=== PATIENT | male | born 1995 | race African-American/Black ===

== ENCOUNTER 2016-10-13 19:19 | Observation (INO) ==
[2016-10-13] MEDS ORDERED: MORPHINE IV ONE (19:53)
[2016-10-13] MEDS ORDERED: ZOFRAN IV ONE (19:53)
[2016-10-13] MEDS ORDERED: TORADOL IV ONE (19:54)
[2016-10-13] MEDS ORDERED: NS 1,000 ML IV ONE (19:56)
--- NOTE | 2016-10-13 19:58 | PROVIDER DOCUMENTATION ---
HPI-Abdominal Pain/GI Problem <Osmar Vann - Last Filed: 10/13/16 21:29> - General Source: patient - History of Present Illness-ABD Nature of Presenting Problems: Pt is a 21 yom who presents to ER with CC of RLQ pain x6 days. Pt reports that he was seen at [facility] x3 days ago and was given amoxycilan and mobic and diagnosed with URI. PT reports that he has had no relief since his visit to [facility], and reports Vx3 last night and it made his pain worse (9/10 pain, previously 8/10) but has been constant since it started 6 days ago. Pt reports that abdominal pain is worse on movement/walking/palpations. Abdominal Pain Onset Location: reports: RLQ Pain Radiation: reports: no radiation Quality of Pain: reports: aching, cramping, sharp Severity in ED: reports: severe Onset/Duration: reports: 6 days ago Timing: reports: still present, constant Associated Symptoms: reports: loss of appetite, nausea, vomiting. denies: constipation, cough, diarrhea, EENT symptoms, fever/chills, genitourinary problems, heartburn, swelling/mass in abdomen, weakness, trouble walking Last BM: unsure Dark Stools Present?: reports: none noticed Rectal Bleeding: reports: none Rectal Pain: reports: none Emesis Description: reports: none <Rigoberto Smith - Last Filed: 10/13/16 21:40> - General Chief Complaint: Abdominal Pain Stated Complaint: RLQ PAIN Time Seen by Provider: 10/13/16 19:29 Allergies/Adverse Reactions: Patient Allergies Allergy/AdvReac Type Severity Reaction Status Date / Time No Known Allergies Allergy Verified 10/13/16 19:32 Home Medications: Home Medication List Medication Instructions Recorded Confirmed Last Taken Type No Home Medications 10/13/16 10/13/16 Unknown History Review of Systems - Adult - REVIEW OF SYSTEMS - ADULT Constitutional: denies: chills, fever, fatique, night sweats Eyes: reports: no symptoms reported Ears, Nose, Mouth & Throat: reports: no symptoms reported Cardiovascular: reports: no symptoms reported Respiratory: denies: cough, dyspnea on exertion, excessive sputum production, hemoptysis, shortness of breath, wheezing Gastrointestinal: reports: abdominal pain, nausea, poor appetite, vomiting. denies: hematemesis, constipation, diarrhea, difficulty swallowing, frequent heartburn, rectal bleeding Genitourinary: denies: dysuria, frequency, flank pain, frequent UTI's, incontinence, urinary retention, urgency Musculoskeletal: denies: back pain, frequent leg cramps, muscle aches, muscle weakness, neck pain Integumentary: reports: no symptoms reported Neurological: reports: no symptoms reported Psychiatric: reports: no symptoms reported Endocrine: reports: no symptoms reported Hematologic/Lymphatic: reports: no symptoms reported Allergic/Immunologic: reports: no symptoms reported All Other Systems: Reviewed and Negative <Rigoberto Smith - Last Filed: 10/13/16 21:40> Past History - Adult - PAST MEDICAL HISTORY-ADULT Review of Records: reports: Nursing Assessment Review, Medications Reviewed Respiratory: reports: asthma - IMMUNIZATION STATUS Childhood Immunizations: See Nurse Assessment Flu Vaccine: See Nurse Assessment <Rigoberto Smith - Last Filed: 10/13/16 21:40> Physical Exam-General - PHYSICAL EXAM-ADULT Initial Vital Signs Reviewed: Yes - CONSTITUTIONAL General Appearance: appears well, alert, mild distress - NECK Neck: non-tender, full range of motion, supple. negative: C-spine tenderness, limited range of motion, lymphadenopathy - RESPIRATORY Respiratory: chest non-tender, lungs clear, normal breath sounds. negative: respiratory distress, decreased breath sounds, accessory muscle use, wheezing - CARDIOVASCULAR Cardiovascular: normal peripheral pulses, regular rate, rhythm. negative: bradycardia, tachycardia, irregularly irregular - GASTROINTESTINAL (ABDOMEN) Abdominal Exam: normal bowel sounds, soft, tenderness (mild RUQ). negative: non tender, abnormal bowel sounds, distended, mass - LYMPHATIC Lymphatic: no adenopathy. negative: axilla node tender, cervical node tenderness, inguinal node tender - MUSCULOSKELETAL Back Exam: no CVA tenderness, no vertebral tenderness. negative: CVA tenderness , decreased range of motion, ecchymosis, muscle spasm, swelling, vertebral tenderness - NEUROLOGIC Neurologic: grossly normal, no motor/sensory deficits. negative: facial droop, focal weakness, motor weakness, sensory deficit - PSYCHIATRIC Psych/Mental Status: normal mood/affect, normal thought content, normal thought process, oriented x 3 <Rigoberto Smith - Last Filed: 10/13/16 21:40> Progress - PLAN OF CARE/RESULTS Progress/Plan/Lab Results: Vital Signs - 24 hr 10/13/16 19:23 Temperature 98.5 F Pulse Rate 70 Respiratory 18 Rate Blood Pressure 149/80 O2 Sat by Pulse 100 Oximetry Orders Category Date Time Status Admit - [facility] - [facility] Routine AdmDCTranf 10/13/16 21:32 Ordered Activity - Up Ad Junie ORDERED Care 10/13/16 21:32 Active Saline Loc DIRECTED Care 10/13/16 21:32 Active Vital Signs Order ARRIVAL TO ROOM Care 10/13/16 21:32 Active NPO Diet 10/13/16 21:[address] ABD/PELVIS W/ IV CONT ONLY [CT] Stat Exams 10/13/16 19:53 Taken CBC WITH ELECTRONIC DIFF [HEME] Stat Lab 10/13/16 20:20 Completed CMP [COMPREHENSIVE METABOLIC PANEL] [CHEM] Stat Lab 10/13/16 20:20 Completed UA Reflex [URINALYSIS W/POSS RFLX CULT] [URINALYSIS] Lab 10/13/16 20:19 Completed Stat URINE CULTURE [RM] Routine Lab 10/13/16 20:35 Received 0.9% Sodium Chloride Inj [Ns] 1,000 ml Med 10/13/16 21:45 Ordered IV 125 mls/hr 0.9% Sodium Chloride Inj [Ns] 1,000 ml Med 10/13/16 19:56 Discontinued IV 999 mls/hr Ketorolac [Toradol] Med 10/13/16 19:54 Discontinued 30 mg IV NOW ONE Morphine Med 10/13/16 19:53 Discontinued 4 mg IV NOW ONE Morphine Med 10/13/16 21:32 Active 4 mg IV Q2H PRN PRN Ondansetron [Zofran] Med 10/13/16 19:53 Discontinued 4 mg IV NOW ONE Ondansetron [Zofran] Med 10/13/16 21:32 Active 4 mg IV Q4H PRN PRN Laboratory Tests 10/13/16 10/13/16 10/13/16 20:19 20:20 20:20 WBC 7.02 RBC 5.33 Hgb 14.2 Hct 42.1 MCV 79.0 L MCH 26.6 L MCHC 33.7 RDW Std Deviation 13.0 Plt Count 220 MPV 10.2 Immature Gran % (Auto) 0.0 Neut % (Auto) 69.4 Lymph % (Auto) 16.5 L [place] % (Auto) 13.4 H Eos % (Auto) 0.6 Baso % (Auto) 0.1 Immature Gran # (Auto) 0.00 Neut # (Auto) 4.87 Lymph # (Auto) 1.16 L [place] # (Auto) 0.94 H Eos # (Auto) 0.04 Baso # (Auto) 0.01 Sodium 134 L Potassium 3.7 Chloride 95 L Carbon Dioxide 25 Anion Gap 14 BUN 10 Creatinine 1.1 Estimated GFR/1.73 m2 > 60 BUN/Creatinine Ratio 9 Glucose 90 Calculated Osmolality 267 Calcium 8.9 Total Bilirubin 0.99 AST 15 ALT 22 Alkaline Phosphatase 70 Total Protein 7.4 Albumin 3.7 Globulin 3.7 Albumin/Globulin Ratio 1.0 Urine Source CLEAN CATCH Urine Color YELLOW Urine Turbidity CLEAR Urine pH 6.5 Ur Specific [place] 1.018 Urine Protein TRACE A Ur Glucose (Stick) NEGATIVE Ur Ketones (Stick) 10 A Urine Blood NEGATIVE Urine Nitrite POSITIVE A Urine Bilirubin SMALL A Urobilinogen Dipstick 4 A Urine Leukocytes NEGATIVE Urine WBC (Auto) <10 Urine RBC (Auto) <10 U Epithel Cells (Auto) <10 Urine Bacteria (Auto) NEGATIVE - CT/MRI 1 CT Study: Abdomen, Pelvis Impression: See EMR Report (appendicitis) CT Results: See report - CONSULTS/PCP/HOSPITALIST Notification #1 *Consult/PCP/Hospitalist*: Dr. Cardona (Surgeon) Time Discussed: 21:30 Consult Disposition: Admit <Rigoberto Smith - Last Filed: 10/13/16 21:40> Departure - Departure Time of Disposition Order: 21:30 Certified Medical Emergency: Emergent <Osmar Vann - Last Filed: 10/13/16 21:29> - Departure Time of Disposition Order: 21:38 Certified Medical Emergency: Emergent <Rigoberto Smith - Last Filed: 10/13/16 21:40> - Departure DIAGNOSIS: Acute appendicitis Qualifiers: Acute appendicitis type: unspecified acute appendicitis type Qualified Code(s) : K35.80 - Unspecified acute appendicitis Disposition: ADMITTED INPATIENT 09 Condition: Fair Referrals: None,PCP [Primary Care Provider] - Attestation - Scribe Verification/Attestation Scribe:: Rigoberto Smith Acting as Scribe for:: Osmar F. O'Meara Scribe documention review:: This chart was documented by a scribe and accurately reflects the service the provider performed and the decisions made by the provider. <Rigoberto Smith - Last Filed: 10/13/16 21:40> Physician Attestation
[2016-10-13 20:20] LABS: URINE MICRO REVIEW NEEDED? NO; URINE SOURCE CLEAN CATCH
[2016-10-13 20:26] LABS: MANUAL DIFF NEEDED? NO
[2016-10-13 20:27] LABS: BILIRUBIN URINE SMALL (NEGATIVE); BLOOD URINE NEGATIVE (NEGATIVE); COLOR YELLOW; GLUCOSE URINE NEGATIVE (NEGATIVE); LEUKOCYTES URINE NEGATIVE (NEGATIVE); NITRITE URINE POSITIVE (NEGATIVE); PH URINE 6.5; PROTEIN URINE TRACE mg/dL (NEGATIVE); SP GRAVITY URINE 1.018; TURBIDITY URINE CLEAR (CLEAR); UROBILINOGEN URINE 4 mg/dL (NORMAL)
[2016-10-13 20:28] LABS: UR EPITHELIAL CELLS <10 /HPF (<10); URINE BACTERIA NEGATIVE /HPF; URINE CULTURE NEEDED? YES; URINE RBC <10 /HPF (<10); URINE WBC <10 /HPF (<10)
[2016-10-13 20:32] LABS: BASO% 0.1 % (0.0-0.8); EOS# 0.04 X1000 (0.0-0.7); EOS% 0.6 % (0.0-10.0); HEMATOCRIT 42.1 % (42.0-52.0); HEMOGLOBIN 14.2 g/dL (14.0-18.0); LYMPH# 1.16 X1000 (1.2-3.4); LYMPH% 16.5 % (20.5-51.1); MCH 26.6 PG (27-31); MCHC 33.7 g/dL (33-37); MONO# 0.94 X1000 (0.11-0.59); MONO% 13.4 % (1.7-9.3); MPV 10.2 FL (7.4-10.4); NEUT% 69.4 % (42.2-75.2); PLT 220 X1000 (130-400); RBC 5.33 XMIL (4.7-6.1)
[2016-10-13 20:49] LABS: AGAP 14; ALBUMIN 3.7 g/dL (3.5-5.0); ALKALINE PHOSPHATASE 70 U/L (32-122); BUN 10 mg/dL (8-22); CALCIUM 8.9 mg/dL (8.8-10.2); CHLORIDE 95 mmol/L (98-107); COSMO 267; GOT 15 U/L (10-34); GPT 22 U/L (10-44); POTASSIUM 3.7 mmol/L (3.5-5.1); SODIUM 134 mmol/L (136-145); TCO2 25 mmol/L (25-35); TOTAL BILIRUBIN 0.99 mg/dL (0.20-1.00); TOTAL PROTEIN 7.4 g/dL (6.3-8.3)
[2016-10-13] MEDS ORDERED: MORPHINE IV PRN (21:32)
[2016-10-13] MEDS ORDERED: ZOFRAN IV PRN (21:32)
[2016-10-13] MEDS ORDERED: ZOSYN 3.375 GM/NS 50 ML IV ONE (21:38)
--- NOTE | 2016-10-13 21:58 | Diag Imaging Result Document ---
PROCEDURE NAME: CT ABD/PELVIS W/ IV CONT ONLY - 10/13/2016 CT ABDOMEN AND PELVIS WITH INTRAVENOUS CONTRAST: TECHNIQUE: Dose reduction protocol. COMPARISON: 10/10/2016. FINDINGS: Normal liver, spleen, pancreas, gallbladder, and adrenal glands. Normal enhancement of the kidneys. No hydronephrosis. Normal aorta. There is stool throughout the colon. The appendix is thickened and there are mild adjacent inflammatory changes. Medial to the appendix is an irregular area containing air believed to be a small abscess measuring approximately 3 cm. The urinary bladder is only mildly distended. The prostate is not enlarged. IMPRESSION: Acute appendicitis with an appendicolith and small abscess. A preliminary report was given at 9:09 p.m.
[2016-10-13] MEDS: NS 1,000 ML IV SCH (22:10)
--- NOTE | 2016-10-14 06:02 | HISTORY AND PHYSICAL ---
ADMITTING DIAGNOSIS: Appendicitis. HISTORY OF PRESENT ILLNESS: A 21-year-old male presenting with a several day history of right lower quadrant pain. He had initially been seen in the [facility] ER three days ago and had a CT scan at that time that did not show an appendicitis. He was given amoxicillin for what they presumed as upper respiratory infection. He reported that he has had no relief from his symptoms and in the last several days they had gotten worse. He came back to the emergency department and had a repeat CT scan that showed possible appendicitis. I was asked to evaluate the patient. He is still complaining of right lower quadrant pain described as cramping and sharp. It has been severe and nothing seems to make it better, and again it has been going on for several days. PAST MEDICAL HISTORY: Asthma. PAST SURGICAL HISTORY: None. HOME MEDICATIONS: None. ALLERGIES: None. SOCIAL HISTORY: Denies alcohol, tobacco or illicit drugs. FAMILY HISTORY: Reviewed with patient but noncontributory. REVIEW OF SYSTEMS: A full 10 point review of systems obtained, negative as specified in HPI. PHYSICAL EXAMINATION: VITAL SIGNS: The patient is currently afebrile. Temperature 98 degrees, pulse is regular at 49, respiratory rate nonlabored at 16, blood pressure 139/64, and O2 saturation 100% on room air. GENERAL: No acute distress but appears mildly uncomfortable. male looks stated age. HEENT: Normocephalic, atraumatic. Pupils equal, round and reactive to light. Mucous membranes are moist. Oropharynx benign. NECK: Supple. Trachea midline. CARDIOVASCULAR: Regular rate and rhythm. LUNGS: Grossly clear. ABDOMEN: Soft, nondistended. Tender to palpation right lower quadrant. Positive straight leg test. Negative Rovsing sign. Some localized peritonitis in the right lower quadrant. EXTREMITIES: Moves all extremities. NEUROLOGIC: Grossly intact. SKIN: No signs of jaundice. VASCULAR: All extremities perfused. LABORATORY: White blood cell count 7.2, hematocrit 42, and platelet count 220,000. CMP reviewed and grossly within normal limits. CT scan independently reviewed and radiology report reviewed. There is some concern on the CT scan that he might have appendicitis. It is difficult for me to see the appendix but there does appear to be an appendicolith. ASSESSMENT/PLAN: A 21-year-old male with right lower quadrant pain with possible appendicitis. Possible appendicitis. At this time, the patient is on antibiotics. We will plan on laparoscopic appendectomy. Discussed with the patient that if he does not have appendicitis that we will still remove his appendix. Discussed with the patient as he has an abscess which was potentially read on the CT scan that he will need a drain in several days in the hospital. All of this was discussed with the patient. He voiced understanding and wished to proceed with the procedure. The risks, benefits, alternatives of the procedure were discussed.
[2016-10-14] MEDS ORDERED: XYLOCAINE 1% ONE (06:18)
[2016-10-14] MEDS ORDERED: LR 1,000 ML ONE (06:18)
[2016-10-14] MEDS ORDERED: MARCAINE 0.25% PF/EPI 1:200,000 ONE (06:18)
[2016-10-14] MEDS: ZOSYN 3.375 GM/NS 50 ML IV SCH ×2 (06:47→12:57)
--- NOTE | 2016-10-14 08:24 | OPERATIVE NOTE ---
PROCEDURE DATE: 10/14/2016 PREOPERATIVE DIAGNOSIS: Appendicitis. POSTOPERATIVE DIAGNOSIS: Appendicitis. PROCEDURE: Laparoscopic appendectomy. SURGEON: Dwaine Cardona MD MOLD HOISTER: None. ANESTHESIA: General endotracheal. INTRAOPERATIVE FINDINGS: Appendicitis. ESTIMATED BLOOD LOSS: 10 mL. SPECIMENS REMOVED: Appendix. BRIEF HISTORY: Patient is a 21-year-old male presenting with a several day history of right lower quadrant pain. He had a CT scan and physical exam consistent with appendicitis. The risks, benefits, and alternatives for appendectomy were discussed. All questions were answered. He wished to proceed with procedure. DESCRIPTION OF PROCEDURE: After informed consent was obtained, patient brought to the operative theater and transferred to the operative table and placed in the supine position, general endotracheal anesthesia was then performed without complication. A formal time-out was then performed confirming patient, date, procedure. All were in agreement. At that time, attention turned to the abdomen, an infraumbilical incision was made through which using the Optiview technique we were able to insert an 11 mm trocar, connected to insufflation. Pneumoperitoneum was achieved. Under direct visualization, placed 2 more trocars, 1 in the right upper quadrant, 1 in the left lower quadrant. Using these, the appendix was identified, bluntly dissected. We used the LigaSure for the mesoappendix. We were able to elevate the appendix once we had taken down the mesoappendix, fired a stapler across the base of the appendix with good results, placed it into an endobag and brought it out through the infraumbilical incision. There was no active drainage of stool or succus. No active bleeding. We irrigated out the area copiously until the suctioned fluid was clear. We brought the appendix out through an endobag through the infraumbilical incision. We closed the infraumbilical incision with 0 Vicryl with a Rajat- Jose device. Removed all trocars, disconnected insufflation, pneumoperitoneum was released. We then closed all skin incisions with 4-0 Monocryl. The patient tolerated the procedure well, had sterile dressings applied.
[2016-10-14] MEDS ORDERED: NORCO-10 PO PRN (09:04)
[2016-10-14] MEDS ORDERED: ZOFRAN IV PRN (09:05)
[2016-10-14] MEDS ORDERED: PERIDEX MT SCH (11:00)
[2016-10-14 12:38] VITALS: BP 157/79
[2016-10-14] MEDS: NS 1,000 ML IV SCH (14:30)
[2016-10-14] MEDS ORDERED: FENTANYL ONE (16:54)
[2016-10-14] MEDS ORDERED: DEMEROL ONE (16:54)
[2016-10-14] MEDS ORDERED: DIPRIVAN 1% ONE (16:54)
[2016-10-15] MEDS ORDERED: QUELICIN (DOSE) ONE (09:50)
[2016-10-15] MEDS ORDERED: XYLOCAINE-MPF 2% ONE (09:50)
[2016-10-15] MEDS ORDERED: ROBINUL ONE (09:50)
[2016-10-15] MEDS ORDERED: LR 1,000 ML ONE (09:50)
[2016-10-15] MEDS ORDERED: ZEMURON ONE (09:50)
[2016-10-15] MEDS ORDERED: NEOSTIGMINE ONE (09:50)
[2016-10-15] MEDS ORDERED: ZOFRAN ONE (09:50)
== END 2016-10-14 15:11 | disposition home or self-care (01) ==
LOC: ED 19:19 → 4N 22:34
PROVIDERS: ADMIT Surgery; ATTEND Surgery
DX: K35.80 Unspecified acute appendicitis (principal); R10.31 Right lower quadrant pain
CPT/HCPCS: 74177; 80053; 81001; 85025; 87088; 88304; 94761; 94799; J1885; J2175; J2270; J2405; J2543; J3010; J7030; J7120; Q9967; S0020